=== PATIENT | female | born 1940 | race Caucasian/White ===

== ENCOUNTER → 2018-09-19 | Outpatient (CLI) | payer OTHER | LOC: SUPIMAGING 17:31 | PROVIDERS: ATTEND Registered Nurse | DX: M25.572 Pain in left ankle and joints of left foot (principal); M79.89 Other specified soft tissue disorders; M25.832 Other specified joint disorders, left wrist; S63.072A Subluxation of distal end of left ulna, initial encounter | CPT/HCPCS: 73110-PN; 73610-PN; 73630-PN ==